=== PATIENT | female | born 1980 | race Caucasian/White ===

== ENCOUNTER 2023-04-09 05:04 | Emergency (ER) | payer MEDICAID ==
[~2023-04-09] VITALS: Ht 167.6 cm; Wt 59.0 kg
[2023-04-09 05:43] VITALS: BP 130/77; PULSE 76; RESP 16; TEMP 98.3; O2SAT 99
== END 2023-04-09 08:44 | disposition left against medical advice (07) ==
LOC: ER 05:04
DX: R06.02 Shortness of breath (principal); Z53.21 Procedure and treatment not carried out due to patient leaving prior to being seen by health care provider
CPT/HCPCS: 99281

== ENCOUNTER 2023-08-09 21:34 | Emergency (ER) | payer MEDICAID, OTHER ==
[~2023-08-09] VITALS: Ht 167.6 cm; Wt 58.9 kg
[2023-08-09 21:49] VITALS: BP 157/83; PULSE 67; RESP 16; TEMP 97.3; O2SAT 100
[2023-08-09] MEDS ORDERED: ERYT60GE9 TP (23:34)
== END 2023-08-10 00:04 | disposition home or self-care (01) ==
LOC: ER 22:14
DX: L73.9 Follicular disorder, unspecified (principal); J45.909 Unspecified asthma, uncomplicated; I10 Essential (primary) hypertension; F19.90 Other psychoactive substance use, unspecified, uncomplicated; Z88.2 Allergy status to sulfonamides
CPT/HCPCS: 99282

== ENCOUNTER 2024-02-06 20:05 | Emergency (ER) | payer MEDICAID ==
[~2024-02-06] VITALS: Ht 167.6 cm; Wt 67.0 kg
[~2024-02-06 20:05] MED LIST: ERYT60GE9 TP
[2024-02-06 20:07] VITALS: O2SAT 99
[2024-02-06 20:11] VITALS: TEMP 98.4; O2SAT 99
[2024-02-06 20:26] LABS: CLARITY URINE CLEAR (CLEAR); COLOR URINE YELLOW (YELLOW); GLUCOSE URINE NEGATIVE (NEGATIVE); KETONES URINE NEGATIVE (NEGATIVE); LEUKOCYTE ESTERASE URINE 2+ (NEGATIVE); NITRITE URINE NEGATIVE (NEGATIVE); OCCULT BLOOD URINE 2+ (NEGATIVE); PH URINE 5.5 (4.5-8.0); PROTEIN URINE NEGATIVE (NEGATIVE); SPECIFIC GRAVITY URINE 1.009 (1.005-1.030); UROBILINOGEN URINE 0.2 E.U./dL (0.2-1.0)
[2024-02-06 20:40] LABS: BACTERIA URINE 1+
[2024-02-06 20:41] LABS: SQUAMOUS EPITHELIAL CELL URINE 1+ /lpf (RARE/1+)
[2024-02-06 21:23] VITALS: BP 130/74; PULSE 74; RESP 16
[2024-02-06] MEDS: KETOROLAC 30MG/ML VIAL IM STA (21:23)
[2024-02-06] MEDS: ONDANSETRON HCL 4MG/2ML INJ IM STA (21:23)
[2024-02-06] MEDS: FAMOTIDINE 20MG TABLET PO ONE (21:24)
[2024-02-06 21:29] LABS: BASOPHILS % 0.3 % (0.0-2.0); DIFFERENTIAL COMMENT 0; EOSINOPHILS % 2.3 % (0.0-5.0); HEMATOCRIT. 39.9 % (36.0-48.0); HEMOGLOBIN. 12.9 g/dL (12.0-16.0); LYMPHOCYTES % 29.2 % (20.0-50.0); MEAN CORPUSCULAR HEMOGLOBIN 24.2 pg (28.0-32.0); MEAN CORPUSCULAR HGB CONC 32.3 g/dL (31.0-37.0); MEAN CORPUSCULAR VOLUME 74.9 fL (81.0-99.0); MONOCYTES % 10.7 % (2.0-8.0); NEUTROPHILS % 57.5 % (40.0-76.0); PLATELET 227 x1000/uL (130-400); RED BLOOD CELL COUNT 5.32 mill/uL (4.2-5.4); WHITE BLOOD COUNT 5.9 x1000/uL (4.5-11.0)
[2024-02-06 21:37] LABS: CHLORIDE 108 mEq/L (98-107); SODIUM 138 mEq/L (136-145)
[2024-02-06 21:38] LABS: CALCIUM 9.1 mg/dL (8.7-10.4); CARBON DIOXIDE 26 mEq/L (21-32)
[2024-02-06 21:43] LABS: CREATININE 0.7 mg/dL (0.6-1.0); GLUCOSE 142 mg/dL (70-105); UREA NITROGEN BLOOD 10 mg/dL (9-23)
[2024-02-06] MEDS ORDERED: FAMO20TA8 MT (23:18)
[2024-02-06] MEDS ORDERED: BISM262T15 MT (23:18)
[2024-02-06] MEDS ORDERED: ACET-2708 PO (23:18)
== END 2024-02-07 00:28 | disposition home or self-care (01) ==
LOC: ER 20:05
DX: K52.9 Noninfective gastroenteritis and colitis, unspecified (principal); J45.909 Unspecified asthma, uncomplicated; I10 Essential (primary) hypertension; Z98.890 Other specified postprocedural states; Z88.5 Allergy status to narcotic agent
CPT/HCPCS: 99284; 80048; 81003; 81025; 83690; 85025; 36415; 96372; J1885; J2405

== ENCOUNTER 2024-03-30 05:24 | Emergency (ER) | payer MEDICAID ==
[~2024-03-30] VITALS: Ht 167.6 cm; Wt 59.0 kg
[~2024-03-30 05:24] MED LIST changes: +ACET-2708 PO; +BISM262T15 MT; +FAMO20TA8 MT
[2024-03-30 05:31] VITALS: O2SAT 100
[2024-03-30 05:34] VITALS: BP 132/72; PULSE 72; RESP 18; TEMP 98; O2SAT 100
[2024-03-30] MEDS ORDERED: KETOROLAC 30MG/ML VIAL IV STA (05:53)
[2024-03-30 06:19] LABS: BASOPHILS % 0.6 % (0.0-2.0); DIFFERENTIAL COMMENT 0; EOSINOPHILS % 2.7 % (0.0-5.0); HEMATOCRIT. 34.8 % (36.0-48.0); HEMOGLOBIN. 11.5 g/dL (12.0-16.0); LYMPHOCYTES % 26.9 % (20.0-50.0); MEAN CORPUSCULAR HEMOGLOBIN 24.7 pg (28.0-32.0); MEAN CORPUSCULAR VOLUME 74.7 fL (81.0-99.0); NEUTROPHILS % 61.8 % (40.0-76.0); PLATELET 253 x1000/uL (130-400); RED BLOOD CELL COUNT 4.65 mill/uL (4.2-5.4); RED CELL DISTRIBUTION WIDTH 15.8 % (11.6-14.6); WHITE BLOOD COUNT 7.7 x1000/uL (4.5-11.0)
[2024-03-30 06:21] LABS: CLARITY URINE CLEAR (CLEAR); COLOR URINE YELLOW (YELLOW); GLUCOSE URINE 2+ (NEGATIVE); KETONES URINE NEGATIVE (NEGATIVE); LEUKOCYTE ESTERASE URINE 1+ (NEGATIVE); NITRITE URINE NEGATIVE (NEGATIVE); OCCULT BLOOD URINE 3+ (NEGATIVE); PH URINE 5.5 (4.5-8.0); PROTEIN URINE 1+ (NEGATIVE); SPECIFIC GRAVITY URINE 1.018 (1.005-1.030)
[2024-03-30 06:34] LABS: CHLORIDE 110 mEq/L (98-107); POTASSIUM 3.3 mEq/L (3.5-5.1); SODIUM 141 mEq/L (136-145)
[2024-03-30 06:35] LABS: CALCIUM 9.2 mg/dL (8.7-10.4); CARBON DIOXIDE 26 mEq/L (21-32)
[2024-03-30 06:40] LABS: SQUAMOUS EPITHELIAL CELL URINE FEW /lpf (RARE/1+)
[2024-03-30 06:40] LABS: CREATININE 0.8 mg/dL (0.6-1.0); GLUCOSE 136 mg/dL (70-105); UREA NITROGEN BLOOD 12 mg/dL (9-23)
[2024-03-30 06:42] LABS: ALANINE AMINOTRANSFERASE 17 IU/L (10-49); ALBUMIN 4.2 g/dL (3.2-4.8); ASPARTATE AMINOTRANSFERASE 19 IU/L (<34); BILIRUBIN DIRECT 0.1 mg/dL (<=3.0); BILIRUBIN TOTAL 0.5 mg/dL (0.1-1.0); PROTEIN TOTAL 6.7 g/dL (6.0-8.3)
[2024-03-30 06:42] LABS: RBC URINE 50-100 /hpf (0-2)
[2024-03-30 06:43] LABS: WBC URINE 0-2 /hpf (0-2)
[2024-03-30 06:44] LABS: BACTERIA URINE NONE SEEN
[2024-03-30 06:45] LABS: HCG SCREEN NEGATIVE
== END 2024-03-30 08:42 ==
LOC: ER 05:24
DX: R10.9 Unspecified abdominal pain (principal); I10 Essential (primary) hypertension; J45.909 Unspecified asthma, uncomplicated; F19.90 Other psychoactive substance use, unspecified, uncomplicated; Z87.442 Personal history of urinary calculi; Z90.49 Acquired absence of other specified parts of digestive tract; Z88.5 Allergy status to narcotic agent
CPT/HCPCS: 80076; 80048; 81003; 84703; 83690; 85025; 36415; 74176; 99284; J1885; Z7610 ×4

== ENCOUNTER 2024-06-14 07:00 | Emergency (ER) | payer MEDICAID ==
[~2024-06-14] VITALS: Ht 167.6 cm; Wt 59.0 kg
[2024-06-14 07:27] VITALS: O2SAT 97
[2024-06-14 07:28] VITALS: BP 149/86; PULSE 73; RESP 18; TEMP 98.1; O2SAT 98
[2024-06-14 08:13] LABS: BASOPHILS % 0.5 % (0.0-2.0); DIFFERENTIAL COMMENT 0; EOSINOPHILS % 2.9 % (0.0-5.0); HEMATOCRIT. 37.2 % (36.0-48.0); HEMOGLOBIN. 12.1 g/dL (12.0-16.0); LYMPHOCYTES % 20.3 % (20.0-50.0); MEAN CORPUSCULAR HGB CONC 32.6 g/dL (31.0-37.0); MEAN CORPUSCULAR VOLUME 73.7 fL (81.0-99.0); MEAN PLATELET VOLUME 8.2 fl (7.4-10.4); NEUTROPHILS % 69.3 % (40.0-76.0); PLATELET 245 x1000/uL (130-400); RED BLOOD CELL COUNT 5.05 mill/uL (4.2-5.4); RED CELL DISTRIBUTION WIDTH 15.7 % (11.6-14.6); WHITE BLOOD COUNT 10.6 x1000/uL (4.5-11.0)
[2024-06-14 08:19] LABS: CHLORIDE 107 mEq/L (98-107); SODIUM 142 mEq/L (136-145)
[2024-06-14 08:20] LABS: CALCIUM 9.5 mg/dL (8.7-10.4); CARBON DIOXIDE 29 mEq/L (21-32)
[2024-06-14 08:25] LABS: CREATININE 0.9 mg/dL (0.6-1.0); GLUCOSE 157 mg/dL (70-105); UREA NITROGEN BLOOD 13 mg/dL (9-23)
[2024-06-14 08:27] LABS: ALANINE AMINOTRANSFERASE 18 IU/L (10-49); ALBUMIN 4.3 g/dL (3.2-4.8); ASPARTATE AMINOTRANSFERASE 19 IU/L (<34); BILIRUBIN TOTAL 0.4 mg/dL (0.1-1.0); PROTEIN TOTAL 7.2 g/dL (6.0-8.3)
[2024-06-14] MEDS ORDERED: KETOROLAC 15MG/ML VIAL IV ONE (08:45)
[2024-06-14 09:04] LABS: BILIRUBIN DIRECT < 0.1 mg/dL (<=3.0)
== END 2024-06-14 10:07 | disposition left against medical advice (07) ==
LOC: ER 07:00
DX: R10.84 Generalized abdominal pain (principal); J45.909 Unspecified asthma, uncomplicated; F19.90 Other psychoactive substance use, unspecified, uncomplicated; Z88.5 Allergy status to narcotic agent
CPT/HCPCS: 36415; 80048; 80076; 85025; 99283